=== PATIENT | female | born 1940 | race Caucasian/White ===

== ENCOUNTER 2023-11-15 18:33 | Inpatient (IN) | payer MEDICARE, BC, SELFPAY ==
[2023-11-15] VITALS (7 sets, daily range): BP systolic 124–162; BP diastolic 58–94; BMI 28.1
[2023-11-15] MEDS: NSS 1000 IV ×2 (15:28→21:54)
[2023-11-15 15:34] LABS: % Basophils 0.6 % (0-2); % Eosinophils 0.1 % (0-6); % Immature Granulocytes 0.9 % (0-0.5); % Lymphocytes 7.8 % (20.5-51.1); % Monocytes 6.5 % (1.7-9.3); % Neutrophils 84.1 % (42.2-75.2); Absolute Basophils 0.1 10^3/uL (0-0.2); Absolute Immature Granulocytes 0.1 10^3/uL (0-0.05); Absolute Monocytes 0.8 10^3/uL (0.1-0.6); Absolute Neutrophils 10.7 10^3/uL (1.4-6.5); Hematocrit 41.9 % (37.0-47.0); Hemoglobin 14.5 g/dL (12.0-16.0); Mean Corp Hgb Conc. 34.6 g/dL (33.0-37.0); Mean Corpuscular Hgb 30.8 pg (27.0-31.0); Mean Platelet Volume 10.5 fL (7.4-10.4); Nucleated Red Blood Cells % 0 %; Platelet Count 208 10^3/uL (130-400); Red Blood Cell Count 4.71 10^6/uL (4.20-5.40); Red Cell Dist. Width 13.5 % (11.5-14.5); White Blood Cell Count 12.7 10^3/uL (4.8-10.8)
--- NOTE | 2023-11-15 15:41 | ED.GENMED ---
History of Present Illness
General
Chief Complaint: Change in Mental Status
Time Seen by Provider: 11/15/23 14:49
Travel History
Have you had any contact with someone who has COVID-19?: Unable to Answer
Do you have any symptoms of coronavirus? Fever > 100 degrees, chills, cough, shortness of breath, sore throat, loss of taste or smell, muscle aches, or headache?: Unable to Answer
History of Present Illness
History of Present Illness:
83-year-old female with history of dementia presents from [facility] for evaluation of altered mental status and lethargy. Has never been to this hospital system before, apparently was admitted to [facility] 2 weeks ago
for urinary tract infection and treated with cephalexin, last dose of antibiotics was on November 04. Baseline mental status is pleasantly demented and she is able to hold a conversation most days however today has been excessively somnolent. Noted to
be febrile on arrival. No history able to be obtained from the patient.
Review of Systems
Review of Systems
Allergies reviewed?: Yes
All Other Systems: ROS reviewed and negative except as documented in HPI and ROS
Phy Exam
Physical Exam
Physical Exam:
GEN: Ill-appearing, diaphoretic, malodorous
Eyes: PERRLA, EOMs intact, no scleral icterus
HENT: NCAT, oral mucosa moist
Lungs: CTAB, no wheezes, rales, rhonchi, normal chest wall excursion
Cardiac: RRR, no M/R/G
Abdomen: S, NT, ND, NABS, no masses or hepatosplenomegaly
Neuro: Somnolent, withdraws to pain, minimally verbal
MSK: No gross deformity or ecchymosis
Skin: No rashes, petechiae. Normal color, no pallor or jaundice.
Course
Orders/Labs/Results
Orders:
Orders
11/15/23 14:56
Straight cath- Treatment ONCE
11/15/23 14:59
0.9% Sodium Chloride 1000 ml [Nss] 1,000 ml IV BOLUS
11/15/23 Dinner
Regular
At Your Request: Non-Participating
11/15/23 15:11
Acetaminophen 1000MG/100Ml [Ofirmev] 1,000 mg in 100 ml IV ONCE
Acetaminophen IV Indication:: ED Narcotic Naive Pt-ONCE
11/15/23 15:24
Complete Blood Count/With Diff Urgent
Lactic Acid Q4H
Comment: CANCEL 2nd LACTIC ACID IF 1st LACTIC ACID IS LESS THAN 2
Urinalysis Reflex To Culture Urgent
Date Specimen was Collected: 11/15/23
Time Specimen was Collected: 15:03
Urine Microscopic Reflex Cult Urgent
Urine Culture Urgent
DAVID Source: U
Specimen Description:
Date Specimen was Collected: 11/15/23
Time Specimen was Collected: 15:03
11/15/23 15:30
Blood Culture Q30M
DAVID Source: Blood/Venous
Specimen Description:
11/15/23 15:46
Blood Culture Q30M
DAVID Source: Blood/Venous
Specimen Description:
11/15/23 15:47
Comprehensive Metabolic Panel Urgent
11/15/23 16:30
CefTRIAXone [Rocephin] 1,000 mg IV NOW STA
11/15/23 17:35
Admit/Transfer Patient As Directed
Co-Sign Provider:
Level of Care: Inpatient admission
Assign to:: Medical/Surgical
Physician / Group: surendra
Diagnosis: sepsis uti
Reason for Hospitalization: sepsis uti
Expected length of stay greater than two midnights?: Yes
ELOS- Estimated Length of Stay in days: 2
I certify the patient meets the requirements for IP care: Yes
Code Status As Directed
Resuscitation Status: Do not resuscitate
Reached after discussion with pt or family/Healthcare POA: Yes
11/15/23 17:36
DNR Bracelet Application ONCE
11/15/23 21:15
0.9% Sodium Chloride 1000 ml [Nss] 1,000 ml IV 100 mls/hr
Heparin 5,000 units SC Q12
11/15/23 21:15
Activity As Directed
Activity Level: As Tolerated
Vital Signs As Directed
Frequency: Per unit guidelines
DX Deep Vein Thrombosis Video Routine
11/15/23 22:00
Acetaminophen [Tylenol] 650 mg PO Q4HPRN PRN
11/16/23 06:00
Complete Blood Count/With Diff IN AM
Comprehensive Metabolic Panel IN AM
11/16/23 16:00
CefTRIAXone [Rocephin] 1,000 mg IV Q24H
Abnormal Lab Results
11/15/23 11/15/23
15:24 15:47
WBC 12.7 H 10^3/uL
(4.8-10.8)
MPV 10.5 H fL
(7.4-10.4)
Abs Immat Gran (auto) 0.1 H 10^3/uL
(0-0.05)
Absolute Neuts (auto) 10.7 H 10^3/uL
(1.4-6.5)
Absolute Lymphs (auto) 1.0 L 10^3/uL
(1.2-3.4)
Absolute Monos (auto) 0.8 H 10^3/uL
(0.1-0.6)
Immature Gran % 0.9 H %
(0-0.5)
Neutrophils % 84.1 H %
(42.2-75.2)
Lymphocytes % 7.8 L %
(20.5-51.1)
Carbon Dioxide 21 L mmol/L
(22-30)
Glucose 107 H mg/dl
(70-99)
Total Bilirubin 1.8 H mg/dl
(0.2-1.3)
Ur Occult Blood Reflex 3+ A
(Negative)
Urine Nitrite (Reflex) Positive A
(Negative)
Leukocyte Esterase Rfl 1+ A
(Negative)
Urine RBC 3-6 A /HPF
(0-2)
Urine WBC (Reflex) 50-60 A /HPF
(0-5)
Urine Bacteria (Reflex) Many A
(Negative)
11/15/23 15:24
11/15/23 15:47
Vital Signs
Initial and Last Documented VS:
Initial Vital Signs
BP
162/94
11/15/23 15:03
Last Documented Vital Signs
Temp Pulse Resp BP Pulse Ox
101.8 F H 83 17 125/58 98
11/15/23 15:04 11/15/23 20:45 11/15/23 20:45 11/15/23 20:00 11/15/23 20:45
MDM/Problems Addressed
MDM/Problems Addressed:
Patient is septic with elevated white count and fever. Given recent hospitalization for urinary tract infection she is at high risk for Drug-resistant pathogen. Admit for IV antibiotics and fluid resuscitation
*Critical Care Note
Total Time (30-74mins, 75-104mins- exclusive of procedures): Not Applicable
ED Attending Note
-
Portions of this chart may have been created with voice recognition software.� Occasional wrong word or��sound alike� substitutions may have occurred due to the inherent limitations of voice recognition software.
Discharge Plan
Departure
Patient Disposition: Admit
Date of Disposition: 11/15/23
Time of Disposition: 16:39
Presentation/result/management discussed w/ accepting MD/DO: Hospitalist
Discharge Problem:
Urinary tract infection, Acute metabolic encephalopathy, Sepsis
Interventions
Interventions:
*Risk Screen - Suicide Last Done: 11/15/23 15:04
*General Assessment Last Done: 11/15/23 15:04
*Neglect/Abuse Screening Last Done: 11/15/23 15:04
ED- Fall Risk Assessment Last Done: 11/15/23 21:04
*ED COVID-19 Vaccine History Last Done: 11/15/23 15:04
*Nursing Disposition Last Done: 11/15/23 21:04
ED- Pulmonary Assessment Last Done: 11/15/23 21:04
ED-Psychological Assessment Last Done: 11/15/23 21:04
ED- Neurological Assessment Last Done: 11/15/23 15:04
ED- Cardiac Assessment Last Done: 11/15/23 21:04
ED Swallowing Screen Last Done: 11/15/23 19:44
Discharge Date and Time
Discharge Date/Time: 11/15/23 21:04
[2023-11-15 15:51] LABS: Lactic Acid 1.9 mmol/L (0.7-2.0)
[2023-11-15 15:54] LABS: Urine Albumin Trace (Neg - Trace); Urine Bilirubin Negative (Negative); Urine Character Slightly Cloudy (Clear); Urine Color Yellow; Urine Glucose Negative (Negative); Urine Ketone Negative (Negative); Urine Leukocyte 1+ (Negative); Urine Nitrite Positive (Negative); Urine Occult Blood 3+ (Negative); Urine Urobilinogen Negative (Neg - 1+)
[2023-11-15] MEDS: OFIRMEV 100 IV (16:12)
[2023-11-15 16:14] LABS: ALT (SGPT) 12 U/L (0-35); AST (SGOT) 19 U/L (14-36); Alkaline Phosphatase 118 U/L (38-126); Blood Urea Nitrogen 15 mg/dl (7-17); Calcium 9.5 mg/dl (8.4-10.2); Carbon Dioxide 21 mmol/L (22-30); Chloride 106 mmol/L (98-107); Estimated Creatinine Clearance 45 ml/min; Glucose 107 mg/dl (70-99); Potassium 4.2 mmol/L (3.5-5.1); Sodium 138 mmol/L (135-145); Total Bilirubin 1.8 mg/dl (0.2-1.3); Total Protein 6.7 g/dl (6.3-8.2); eGFR > 60.00
[2023-11-15 16:26] LABS: Urine Bacteria Many (Negative); Urine White Cell 50-60 /HPF (0-5)
[2023-11-15] MEDS: ROCEPHIN 1000 MG IV (16:45)
--- NOTE | 2023-11-15 17:37 | HPS.HSE ---
Family Physician
-
Family Physician: Murphy Champagne MD
Chief Complaint
-
fever, lethargy
History of Present Illness
83-year-old female past medical history of dementia, osteoporosis/arthritis presenting from [facility] for altered mental status and lethargy. Patient was admitted at [facility] 2 weeks ago for urinary tract infection treated
with Keflex which she finished on November 04. At baseline patient is pleasant and able to hold conversation most days however today she has been excessively somnolent with fever. History unable to be obtained from patient.
As per daughter patient has been cognitively declining more in the past several weeks. She has been having tremors and feeling more anxious and lashing out at staff at [facility].
Medical History
Past Medical History
Past Medical History: Reports Other (dementia, osteoporosis/arthritis )
Past Surgical History: Reports Other (Cataracts, hip surgery)
Social History
Tobacco: Non-smoker
Alcohol: None
Drug: None
Family History
Family History: Not pertinent
Allergies / Home Medications
Allergies reflects when Allergies were last updated in [email or web address].
Home Medications with original date entered in [email or web address]
Allergy/Medication List:
Allergies
Allergy/AdvReac Type Severity Reaction Status Date / Time
azithromycin Allergy Unknown Verified 11/15/23 15:31
clindamycin Allergy Unknown Verified 11/15/23 15:31
erythromycin base Allergy Unknown Verified 11/15/23 15:31
Home Medications
acetaminophen 325 mg tablet 650 mg PO Q4H PRN mild pain/fever 11/15/23
budesonide-formoterol HFA 80 mcg-4.5 mcg/actuation aerosol inhaler (Symbicort) 2 puff inhalation R BID 11/15/23
bupropion HCl 150 mg 24 hr tablet, extended release 150 mg PO DAILY 11/15/23
cholecalciferol (vitamin D3) 50 mcg (2,000 unit) tablet 50 mcg PO DAILY 11/15/23
dorzolamide 2 % eye drops 1 drp LEFT EYE BID 11/15/23
ipratropium 0.5 mg-albuterol 3 mg (2.5 mg base)/3 mL nebulization soln 3 ml inhalation R Q4HPRN PRN sob/wheezing 11/15/23
latanoprost 0.005 % eye drops 1 drp LEFT EYE HS 11/15/23
loperamide 2 mg tablet 2 mg PO Q6HPRN PRN diarrhea 11/15/23
mirtazapine 30 mg tablet 30 mg PO HS 11/15/23
peg 400-propylene glycol 0.4 %-0.3 % eye drops (Systane Ultra) 1 drp BOTH EYES BID 11/15/23
polyethylene glycol 3350 17 gram oral powder packet (Miralax) 17 g PO DAILYPRN PRN constipation 11/15/23
quetiapine 25 mg tablet (Seroquel) 12.5 mg PO BID 11/15/23
timolol maleate 0.5 % eye drops 1 drp LEFT EYE BID 11/15/23
Review of Systems
-
Unable to obtain full review of systems at this time due to: Patient Non-verbal
History Source: Family
A 12 point ROS was completed and negative except as noted: No
Physical Exam
Vital Signs
Vital Signs
Temp Pulse Resp BP Pulse Ox
101.8 F H 79 17 162/94 96
11/15/23 15:04 11/15/23 17:30 11/15/23 17:30 11/15/23 15:04 11/15/23 17:30
Physical Exam
General: Well Developed, Well Nourished and No Apparent Distress
HEENT: NormoCephalic, Moist mucous membranes and Atraumatic
Respiratory: Clear
Cardiac: S1/S2 and Regular Rhythm; No Murmur or Rub
GI: Soft, Non Tender, Non Distended and Normal Bowel Sounds; No Organomegaly
Rectal: Deferred by Provider
Musculoskeletal: No Clubbing, No Cyanosis and No Edema
Skin: No Rash
Neuro: Nonfocal/grossly intact
Laboratory Results
-
11/15/23 15:24
11/15/23 15:47
Laboratory Results
Lactic Acid Cancelled 11/15/23 19:00
Total Bilirubin 1.8 mg/dl (0.2-1.3) H 11/15/23 15:47
AST 19 U/L (14-36) 11/15/23 15:47
ALT 12 U/L (0-35) 11/15/23 15:47
Alkaline Phosphatase 118 U/L (38-126) 11/15/23 15:47
Data Reviewed
-
Lab Data: Labs Reviewed by me
Old Records: Reviewed
Impression/Plan
-
IMPRESSION:
PLAN:
# Sepsis (fever, leukocytosis) secondary to urinary tract infection
-UA 50-60 WBC
-Check urine, blood cultures
-IV fluids
-Ceftriaxone
Progressive dementia with early behavioral disturbances
-Resume Seroquel, mirtazapine, bupropion when more awake
Osteoporosis/Arthritis
DNR/DNI
DVT prophylaxis�heparin
Regular diet when able
[2023-11-15] MEDS: HEPARIN 5000 UNITS SC (21:53)
[2023-11-16 07:02] LABS: % Basophils 0.3 % (0-2); % Eosinophils 0.2 % (0-6); % Immature Granulocytes 1.4 % (0-0.5); % Lymphocytes 7.4 % (20.5-51.1); % Monocytes 8.8 % (1.7-9.3); % Neutrophils 81.9 % (42.2-75.2); Absolute Immature Granulocytes 0.1 10^3/uL (0-0.05); Absolute Lymphocytes 0.7 10^3/uL (1.2-3.4); Absolute Monocytes 0.8 10^3/uL (0.1-0.6); Absolute Neutrophils 7.9 10^3/uL (1.4-6.5); Hematocrit 36.5 % (37.0-47.0); Mean Corp Hgb Conc. 32.9 g/dL (33.0-37.0); Mean Corpuscular Hgb 30.5 pg (27.0-31.0); Mean Corpuscular Volume 92.9 fL (81.0-99.0); Mean Platelet Volume 11.8 fL (7.4-10.4); Nucleated Red Blood Cells % 0 %; Platelet Count 174 10^3/uL (130-400); Red Blood Cell Count 3.93 10^6/uL (4.20-5.40); Red Cell Dist. Width 13.2 % (11.5-14.5); White Blood Cell Count 9.6 10^3/uL (4.8-10.8)
[2023-11-16 07:28] VITALS: BP 111/59
[2023-11-16 07:35] LABS: ALT (SGPT) < 10 U/L (0-35); AST (SGOT) 16 U/L (14-36); Alkaline Phosphatase 102 U/L (38-126); Blood Urea Nitrogen 10 mg/dl (7-17); Calcium 8.3 mg/dl (8.4-10.2); Carbon Dioxide 22 mmol/L (22-30); Chloride 110 mmol/L (98-107); Estimated Creatinine Clearance 50 ml/min; Glucose 85 mg/dl (70-99); Potassium 3.9 mmol/L (3.5-5.1); Sodium 140 mmol/L (135-145); Total Bilirubin 1.1 mg/dl (0.2-1.3); Total Protein 5.4 g/dl (6.3-8.2); eGFR > 60.00
[2023-11-16] MEDS: NSS 1000 IV (08:40)
[2023-11-16] MEDS: HEPARIN 5000 UNITS SC ×2 (08:41→21:23)
--- NOTE | 2023-11-16 11:25 | W.PN.HOSP.TC ---
Today's Communication/Plan
-
DC fluid
Monitor p.o. tolerance
Antibiotic
Await culture data
Rehab evaluation
Assessment / Plan
Assessment / Plan
General: Well Developed, Well Nourished and No Apparent Distress
HEENT: NormoCephalic, Moist mucous membranes and Atraumatic
Respiratory: Clear
Cardiac: S1/S2 and Regular Rhythm; No Murmur or Rub
GI: Soft, Non Tender, Non Distended and Normal Bowel Sounds; No Organomegaly
Rectal: Deferred by Provider
Musculoskeletal: No Clubbing, No Cyanosis and No Edema
Skin: No Rash
Neuro: Nonfocal/grossly intact, Apparent dementia
# Sepsis (fever, leukocytosis) secondary to urinary tract infection
# Toxic metabolic encephalopathy likely secondary to above versus worsening of underlying dementia/depression/anxiety
-UA 50-60 WBC
-Check urine, blood cultures
-IV fluids
-Ceftriaxone
Progressive dementia with early behavioral disturbances
Depression/anxiety
-Resume Seroquel, mirtazapine, bupropion when more awake
Hyperlipidemia
Not on meds. Diet controlled.
Osteoporosis/Arthritis status post bilateral hip replacement
History of idiopathic NPH per longterm records
DNR/DNI
DVT prophylaxis�heparin
PT/OT
Anticipated Discharge: > 48 hours
Subjective/Interval History
-
Date of Service: November 16, 2023
No overnight events
eating breakfast
denies pain
Objective Data
-
Labs:
Laboratory Results
11/16/23
05:29
WBC 9.6
Hgb 12.0
Hct 36.5 L
Plt Count 174
Sodium 140
Potassium 3.9
Chloride 110 H
Carbon Dioxide 22
BUN 10
Creatinine 0.8
Glucose 85
Calcium 8.3 L
Total Bilirubin 1.1
AST 16
ALT < 10
Alkaline Phosphatase 102
Vital Signs:
Vital Signs
Temp Pulse Resp BP Pulse Ox
99.2 F 90 16 111/59 95
11/16/23 07:28 11/16/23 07:28 11/16/23 07:28 11/16/23 07:28 11/16/23 07:28
I&O
11/15/23 11/16/23 11/17/23
06:59 06:59 06:59
Intake Total 100 / 100
Output Total 475 / 475
Balance -375 / -375
Data Reviewed
-
Total Time Spent with Patient (in minutes): 55
[2023-11-16 15:43] VITALS: BP 126/63
[2023-11-16 15:48] VITALS: BP 126/63; PULSE 76; O2SAT 94
[2023-11-16] MEDS: ROCEPHIN 1000 MG IV (16:15)
[2023-11-16] MEDS: STERILE WATER FOR INJECTION 10 ML IV (16:16)
--- NOTE | 2023-11-16 16:33 | CM ---
Pt oriented to name
Pt from [facility] admitted for UTI, fevers, lethargy, sepsis
Wheelchair bound at baseline and assist with ADL's
PCP - Dr Yomaira Champagne
Pharm - at facility
Pending PT/OT eval
Plan - anticipate return to [facility] when medically stable
[2023-11-16] MEDS: TYLENOL 650 MG PO (21:23)
[2023-11-16 23:36] VITALS: BP 129/74
[2023-11-17 05:51] VITALS: BMI 28.4
[2023-11-17 07:00] VITALS: BP 156/77
[2023-11-17 07:23] LABS: % Basophils 0.6 % (0-2); % Eosinophils 1.7 % (0-6); % Immature Granulocytes 2.1 % (0-0.5); % Lymphocytes 14.3 % (20.5-51.1); % Monocytes 12.8 % (1.7-9.3); % Neutrophils 68.5 % (42.2-75.2); Absolute Eosinophils 0.1 10^3/uL (0-0.7); Absolute Immature Granulocytes 0.1 10^3/uL (0-0.05); Absolute Lymphocytes 0.8 10^3/uL (1.2-3.4); Absolute Monocytes 0.7 10^3/uL (0.1-0.6); Absolute Neutrophils 3.7 10^3/uL (1.4-6.5); Hematocrit 34.3 % (37.0-47.0); Hemoglobin 11.7 g/dL (12.0-16.0); Mean Corp Hgb Conc. 34.1 g/dL (33.0-37.0); Mean Corpuscular Hgb 30.9 pg (27.0-31.0); Mean Corpuscular Volume 90.5 fL (81.0-99.0); Mean Platelet Volume 11.7 fL (7.4-10.4); Nucleated Red Blood Cells % 0 %; Platelet Count 177 10^3/uL (130-400); Red Blood Cell Count 3.79 10^6/uL (4.20-5.40); Red Cell Dist. Width 13.5 % (11.5-14.5); White Blood Cell Count 5.3 10^3/uL (4.8-10.8)
[2023-11-17 08:06] LABS: Blood Urea Nitrogen 10 mg/dl (7-17); Calcium 8.7 mg/dl (8.4-10.2); Carbon Dioxide 18 mmol/L (22-30); Chloride 113 mmol/L (98-107); Estimated Creatinine Clearance 57 ml/min; Glucose 95 mg/dl (70-99); Potassium 3.7 mmol/L (3.5-5.1); Sodium 138 mmol/L (135-145); eGFR > 60.00
[2023-11-17] MEDS: HEPARIN 5000 UNITS SC ×2 (08:18→21:49)
[2023-11-17 09:11] LABS: B.E. -1.7 mmol/L; HCO3 21.7 mmol/L (21-28); O2 Saturation % 98.8 % (94-98); PCO2 32 mmHg (32-35); PO2 117 mmHg (83-108); pH 7.44 (7.35-7.45)
[2023-11-17 09:13] LABS: O2 Therapy RA
--- NOTE | 2023-11-17 12:08 | W.PN.HOSP.TC ---
Today's Communication/Plan
-
Dispo-PT/OT eval, Po abx on dc, restart meds. Start dispo efforts
Assessment / Plan
Assessment / Plan
General: Well Developed, Well Nourished and No Apparent Distress
HEENT: NormoCephalic, Moist mucous membranes and Atraumatic
Respiratory: Clear
Cardiac: S1/S2 and Regular Rhythm; No Murmur or Rub
GI: Soft, Non Tender, Non Distended and Normal Bowel Sounds;
Musculoskeletal: No Clubbing, No Cyanosis and No Edema
Skin: No Rash
Neuro: Nonfocal/grossly intact, Apparent dementia
# Sepsis (fever, leukocytosis) secondary to E.coli urinary tract infection
# Toxic metabolic encephalopathy likely secondary to above versus worsening of underlying dementia/depression/anxiety
-Ucx noted.
-Bcx is negative.
-IV fluids can be stopped
-Abg negative for hypercapnia
-CT head
-Ceftriaxone while here
Progressive dementia with early behavioral disturbances
Depression/anxiety
-Resume Seroquel, bupropion
-On high dose remeron
Hyperlipidemia
Not on meds. Diet controlled.
Osteoporosis/Arthritis status post bilateral hip replacement
History of idiopathic NPH per [facility] records
PT/OT
Suspected obstructive lung disease
Cont symbicort/Bronchodilators
DNR/DNI
DVT prophylaxis�heparin
PT/OT
Dispo-PT/OT eval, Po abx on dc, restart meds. Start dispo efforts
Anticipated Discharge: Within 24 hours
Subjective/Interval History
-
Date of Service: November 17, 2023
Was in deep sleep earlier today
took long to wake up
did answer question upon waking up
Objective Data
-
Labs:
Laboratory Results
11/17/23 11/17/23
05:38 09:03
WBC 5.3
Hgb 11.7 L
Hct 34.3 L
Plt Count 177
HCO3 21.7
Sodium 138
Potassium 3.7
Chloride 113 H
Carbon Dioxide 18 L
BUN 10
Creatinine 0.7
Glucose 95
Calcium 8.7
Vital Signs:
Vital Signs
Temp Pulse Resp BP Pulse Ox
98.8 F 75 16 156/77 95
11/17/23 07:00 11/17/23 07:00 11/17/23 07:00 11/17/23 07:00 11/17/23 07:00
I&O
11/16/23 11/17/23 11/18/23
06:59 06:59 06:59
Intake Total 100 / 100 50 / 50
Output Total 475 / 475
Balance -375 / -375 50 / 50
Data Reviewed
-
Total Time Spent with Patient (in minutes): 55
[2023-11-17] MEDS: WELLBUTRIN XL (24 hour extended release) 150 MG PO (12:51)
--- NOTE | 2023-11-17 13:53 | PTOTSP ---
Speech Language Pathology
Clinical Swallow Evaluation
83F admitted for sepsis 2/[address] of head w/ �MODERATE to SEVERE DIFFUSE VENTRICULAR DILATATION suspicious for NORMAL PRESSURE COMMUNICATING HYDROCEPHALUS.� PMH significant for dementia and osteoporosis. [employer] referral 2/2 increased coughing during
meals.
P/w a functional oropharyngeal swallow with no overt s/s of aspiration or penetration demonstrated this date.
Recommendations:
1. Regular solids, thin liquids
2. Medications as tolerated
3. General aspiration precautions
4. Please re-consult [employer] service if pt demonstrates s/s concerning for aspiration abnormal WBC or CXR, increased chest congestion, etc.
[2023-11-17 15:00] VITALS: BP 155/98
[2023-11-17] MEDS: ROCEPHIN 1000 MG IV (15:02)
[2023-11-17] MEDS: STERILE WATER FOR INJECTION 10 ML IV (15:03)
[2023-11-17] MEDS: SYMBICORT 80/4.5 MCG INHALER 2 PUFF INH (17:45)
[2023-11-17] MEDS: REFRESH EYE DROPS (PF) 2 DROPS OPHTH (21:49)
[2023-11-17] MEDS: TIMOPTIC 0.5% OPHTHALMIC SOLUTION 1 DROP LEFT EYE (21:50)
[2023-11-17] MEDS: XALATAN OPHTHALMIC SOLUTION 1 DROP LEFT EYE (21:50)
[2023-11-17] MEDS: SEROQUEL PO (21:50)
[2023-11-17] MEDS: TRUSOPT 2% OPHTHALMIC SOLUTION 1 DROP LEFT EYE (21:50)
[2023-11-17 23:54] VITALS: BP 123/73
[2023-11-18 06:26] LABS: % Basophils 0.7 % (0-2); % Immature Granulocytes 1.1 % (0-0.5); % Lymphocytes 21.8 % (20.5-51.1); % Monocytes 15.1 % (1.7-9.3); % Neutrophils 59.3 % (42.2-75.2); Absolute Eosinophils 0.1 10^3/uL (0-0.7); Absolute Immature Granulocytes 0.1 10^3/uL (0-0.05); Absolute Monocytes 0.7 10^3/uL (0.1-0.6); Absolute Neutrophils 2.7 10^3/uL (1.4-6.5); Hematocrit 36.3 % (37.0-47.0); Hemoglobin 12.3 g/dL (12.0-16.0); Mean Corp Hgb Conc. 33.9 g/dL (33.0-37.0); Mean Corpuscular Hgb 30.5 pg (27.0-31.0); Mean Corpuscular Volume 90.1 fL (81.0-99.0); Mean Platelet Volume 11.5 fL (7.4-10.4); Nucleated Red Blood Cells % 0 %; Platelet Count 191 10^3/uL (130-400); Red Blood Cell Count 4.03 10^6/uL (4.20-5.40); Red Cell Dist. Width 13.1 % (11.5-14.5); White Blood Cell Count 4.5 10^3/uL (4.8-10.8)
[2023-11-18 06:48] LABS: Blood Urea Nitrogen 7 mg/dl (7-17); Calcium 8.9 mg/dl (8.4-10.2); Carbon Dioxide 21 mmol/L (22-30); Chloride 109 mmol/L (98-107); Estimated Creatinine Clearance 57 ml/min; Glucose 103 mg/dl (70-99); Potassium 3.6 mmol/L (3.5-5.1); Sodium 138 mmol/L (135-145); eGFR > 60.00
[2023-11-18 07:30] VITALS: BP 150/80
[2023-11-18] MEDS: SYMBICORT 80/4.5 MCG INHALER 2 PUFF INH (08:04)
[2023-11-18] MEDS: REFRESH EYE DROPS (PF) 10 DROPS OPHTH (08:24)
[2023-11-18] MEDS: WELLBUTRIN XL (24 hour extended release) 150 MG PO (08:24)
[2023-11-18] MEDS: SEROQUEL 12.5 MG PO (08:24)
[2023-11-18] MEDS: VITAMIN D3 (cholecalciferol) 50 MCG PO (08:25)
[2023-11-18] MEDS: TRUSOPT 2% OPHTHALMIC SOLUTION 1 DROP LEFT EYE (08:25)
[2023-11-18] MEDS: TIMOPTIC 0.5% OPHTHALMIC SOLUTION 1 DROP LEFT EYE (08:25)
[2023-11-18] MEDS: HEPARIN 5000 UNITS SC (08:25)
[2023-11-18 10:55] VITALS: BP 109/58; PULSE 73; PULSE 76; O2SAT 95; O2SAT 96
--- NOTE | 2023-11-18 10:56 | W.PN.HOSP.TC ---
Today's Communication/Plan
-
Back to previous living situation
Po Antibiotics on DC
Assessment / Plan
Assessment / Plan
General: Well Developed, Well Nourished and No Apparent Distress
HEENT: NormoCephalic, Moist mucous membranes and Atraumatic
Respiratory: Clear
Cardiac: S1/S2 and Regular Rhythm; No Murmur or Rub
GI: Soft, Non Tender, Non Distended and Normal Bowel Sounds;
Musculoskeletal: No Clubbing, No Cyanosis and No Edema
Skin: No Rash
Neuro: Nonfocal/grossly intact, Apparent dementia
# Sepsis (fever, leukocytosis) secondary to E.coli urinary tract infection
# Toxic metabolic encephalopathy likely secondary to above versus worsening of underlying dementia/depression/anxiety
-Ucx noted. Received IV ceftriaxone while here. Switch to cefdinir on discharge.
-Bcx is negative.
-IV fluids can be stopped
-Abg negative for hypercapnia
-CT head
Progressive dementia with early behavioral disturbances
Depression/anxiety
-Resume Seroquel, bupropion
-On high dose remeron
Hyperlipidemia
Not on meds. Diet controlled.
Osteoporosis/Arthritis status post bilateral hip replacement
History of idiopathic NPH per alf records
PT/OT
Suspected obstructive lung disease
Cont symbicort/Bronchodilators
DNR/DNI
DVT prophylaxis�heparin
PT/OT
Dispo-p.o. antibiotics. DC today.
More than 30 minutes spent in discharge including
Final examination of the patient
Summarizing hospital stay
Instructions for continuing care to all relevant caregivers
Preparation of discharge records, prescriptions, and referral forms
Total time spent (in minutes): 45
Anticipated Discharge: Today
Subjective/Interval History
-
Date of Service: November 18, 2023
Awake and waiting for breakfast
Denies any chest pain or shortness of breath or nausea or vomiting.
Objective Data
-
Labs:
Laboratory Results
11/18/23
05:49
WBC 4.5 L
Hgb 12.3
Hct 36.3 L
Plt Count 191
Sodium 138
Potassium 3.6
Chloride 109 H
Carbon Dioxide 21 L
BUN 7
Creatinine 0.7
Glucose 103 H
Calcium 8.9
Vital Signs:
Vital Signs
Temp Pulse Resp BP Pulse Ox
98.2 F 64 17 150/80 96
11/18/23 07:30 11/18/23 08:08 11/18/23 08:08 11/18/23 07:30 11/18/23 08:08
I&O
11/17/23 11/18/23 11/19/23
06:59 06:59 06:59
Intake Total 50 / 50 300 / 300
Balance 50 / 50 300 / 300
--- NOTE | 2023-11-18 12:07 | CM ---
Pt for return to [facility].
Medical Necessity for transport provided
Report # [phone]
--- NOTE | 2023-11-18 13:28 | W.DCSUMMARY ---
Discharge Summary
Discharge Data
Date of Admission: 11/15/23
Date of Discharge: 11/18/23
-
Pending Results: No
Hospital Course
83 female past medical history of obstructive lung disease, idiopathic NPH, osteoporosis, arthritis, hyperlipidemia, progressive dementia with currently behavioral disturbances who was presented with toxic metabolic encephalopathy which was seems
multifactorial. Patient was found to be septic secondary to E. coli UTI. Blood cultures were negative. Patient was started on IV ceftriaxone. Remained afebrile. IV fluids were discontinued. ABG negative for hypercapnia. CT head negative for
acute stroke. Patient mentation significantly improved with IV antibiotics. Patient was seen by PT OT. Patient was tolerating diet. Patient be discharged with p.o. antibiotic back to previous living situation.
Discharge Plan
-
Patient Disposition: [facility]/SNF
Discharge Diagnosis/Procedures: Sepsis secondary to E. coli UTI
Progressive dementia without any behavioral disturbances
Condition: Fair
Diet: Regular
Activity: With assistance and As tolerated
Driving Restrictions: No driving
Referrals:
Murphy Champagne MD [Family Provider] - in less than 1 week
Prescriptions:
New
cefdinir 300 mg capsule
300 mg PO BID Qty: 10 0RF
Continued
quetiapine [Seroquel] 25 mg Tablet
12.5 mg PO BID
latanoprost 0.005 % Drops
1 drp LEFT EYE HS
acetaminophen 325 mg Tablet
650 mg PO Q4H PRN (Reason: mild pain/fever)
ipratropium-albuterol 0.5 mg-3 mg(2.5 mg base)/3 mL Solution For Nebulization
3 ml INHALATION R Q4HPRN PRN (Reason: sob/wheezing)
polyethylene glycol 3350 [Miralax] 17 gram Powder In Packet
17 g PO DAILYPRN PRN (Reason: constipation)
loperamide 2 mg Tablet
2 mg PO Q6HPRN PRN (Reason: diarrhea)
mirtazapine 30 mg Tablet
30 mg PO HS
timolol maleate 0.5 % Drops
1 drp LEFT EYE BID
dorzolamide 2 % Drops
1 drp LEFT EYE BID
Systane Ultra 0.4-0.3 % Drops
1 drp BOTH EYES BID
bupropion HCl 150 mg Tablet Extended Release 24 Hr
150 mg PO DAILY
budesonide-formoterol [Symbicort] 80-4.5 mcg/actuation Hfa Aerosol Inhaler
2 puff INHALATION R BID
cholecalciferol (vitamin D3) 50 mcg (2,000 unit) Tablet
50 mcg PO DAILY
Discharge Orders:
Discharge Patient (As Directed); Ordered 11/18/23
Ordered By: Mukund Hernandez
Discharge Date and Time
Discharge Date/Time: 11/18/23 14:48
Print Language: NIUEAN
[2023-11-18] MEDS: ROCEPHIN 1000 MG IV (14:28)
[2023-11-18] MEDS: STERILE WATER FOR INJECTION 10 ML IV (14:28)
[2023-11-18 14:38] VITALS: BP 148/76
== END 2023-11-18 14:48 | DRG 871 ==
LOC: 3 WEST ACU 18:33
PROVIDERS: Physician Assistant; ADMITTING PHYSICIAN Hospitalist; ATTENDING PHYSICIAN Hospitalist; EMERGENCY PHYSICIAN Student in an Organized Health Care Education/Training Program
DX: A41.51 Sepsis due to Escherichia coli [E. coli] (principal); G92.8 Other toxic encephalopathy; F03.918 Unspecified dementia, unspecified severity, with other behavioral disturbance; N39.0 Urinary tract infection, site not specified; G91.2 (Idiopathic) normal pressure hydrocephalus; J44.9 Chronic obstructive pulmonary disease, unspecified; M81.0 Age-related osteoporosis without current pathological fracture; E78.5 Hyperlipidemia, unspecified; M19.90 Unspecified osteoarthritis, unspecified site; Z66 Do not resuscitate; Z88.1 Allergy status to other antibiotic agents; Z79.51 Long term (current) use of inhaled steroids
CPT/HCPCS: 36600; 51701; 70450; 80048; 80053; 81003; 81015; 82805; 83605; 85025; 87040; 87070; 87086; 87088; 87186; 92610; 94640; 96374; 96375; 97163; 97167; 97530; 99284